=== PATIENT | female | born 1955 | race Caucasian/White ===

== ENCOUNTER 2017-08-16 02:18 | Inpatient (IN) | payer OTHER ==
[~2017-08-16] VITALS: Ht 172.7 cm; Wt 66.2 kg
[~2017-08-16 02:18] MED LIST: ALBUTEROL1.25 MG/1 INH/SOL; COZAAR50 M1 PO; PATADAY2.5 ML; PREVACID30 M1 PO; PROAIR HFA8.5 GM INH; RESTASIS1 EACH OPH; VALACYCLOVIR500 M1 PO
--- NOTE | 2017-08-16 09:40 | Admission Core Measures ---
Acute Coronary Syndrome (CM) ACS Core Measures Acute Coronary Syndrome Diagnosis No Congestive Heart Failure (NEW) CHF Core Measures Congestive Heart Failure Diagnosis No Cerebrovascular Accident (NEW) CVA Core Measures CVA/TIA Diagnosis No Venous Thromboembolism VTE Core [place] (View Protocol) VTE Risk Factors Surgery No Mechanical VTE Prophylaxis d/t N/A MechProphylax Ordered No VTE Pharm Prophylaxis d/t NA PharmProphylax ordered Problem List As ranked by this Provider includes Assessment & Plan 1. Unilateral primary osteoarthritis, left hip HOME MEDS Home Med List Albuterol Sulfate (Proair Hfa) 90 MCG HFA.AER.AD 2 PUF INH Q4-6 PRN PRN ASTHMA (Reported) Albuterol Sulfate 1.25 MG/3 ML VIAL.NEB 1 Vial INH/DAGOBERTO Q4 ASTHMA (Reported) Cyclosporine (Restasis) 0.05 % DROPERETTE 1 GTT OPH BID DRY EYE (Reported) Lansoprazole (Prevacid) 30 MG CAPSULE.DR 1 CAP PO DAILY REFLUX (Reported) Losartan Potassium (Cozaar) 50 MG TABLET 1 TAB PO DAILY HTN (Reported) Valacyclovir HCl (Valacyclovir) 500 MG TABLET 1 TAB PO BID HERPES (Reported)
--- NOTE | 2017-08-16 09:44 | Surg Short-stay <48hrs Dis Sum ---
Visit Information Visit Dates Admission Date: 08/16/17 Discharge Date: 08/17/17 Surgical Short Stay DC Summary Admission Diagnosis: Primary osteoarthritis, left hip Final Diagnosis: DUNIA s/p left total hip replacement Procedure(s): Left total hip replacement Summary/Significant Findings: Patient was admitted to the hospital for an elective left total hip replacement. The procedure was tolerated well and patient was transferred to a general surgical floor. Diet was advanced and tolerated and the patient voided spontaneously. The patient was evaluated and treated by physical therapy. At the time of hospital discharge, the vital signs were stable, neurovascular status was intact, and pain was controlled with the use of oral pain medications. Condition at Discharge: Stable Discharge Disposition: home health services Discharge instructions provided to patient/family: Yes Post discharge follow-up plan: F/u in [address] Dickinson
[2017-08-16] MEDS ORDERED: ASPIRIN325 M2 PO (09:45)
[2017-08-16] MEDS ORDERED: DILAUDID2 M1 PO (09:45)
[2017-08-16] MEDS ORDERED: MIRALAX17 G1 PO (09:45)
[2017-08-16] MEDS ORDERED: COLACE100 M1 PO (09:45)
--- NOTE | 2017-08-16 09:50 | Patient Discharge Instructions ---
Discharge Instructions General Discharge Information You were seen/treated for: Left hip osteoarthritis You had these procedures: Left hip arthroplasty on 08/16 Watch for these problems: Increasing pain despite the use of pain medication Increasing redness, warmth or swelling Drainage of any type from incision Inability to bear weight on operative leg Persistent nausea and vomiting Fever greater than 101.5 degrees Other wound care: Please keep wound clean and dry. No ointments or lotions of any type on or near incision. Your dressing will be changed by your nurse on the second day after your surgery. Daily dry dressing changes are recommended each day thereafter. Do not soak your wound- no tub baths/swimming. You may shower 48hr after surgery. Special Instructions: Aspirin: You are taking this medication to help prevent blood clot formation. Please take with food to protect your stomach lining. Please take as directed. Constipation: Pain medication can cause constipation. It is recommended that you take Colace and Miralax each day. Discontinue this medication if you develop loose stool or diarrhea. If you wish to continue this medication, it is available over the counter. If you are unable to move your bowels or unable to pass gas and are developing bloating, nausea, or vomiting as a result, please contact your doctor. Diet Continue normal diet: Yes Activity Activity Self Limited: Yes Activity Limited to: Weight bear as tolerated Other activity limits: Use rolling walker as needed Acute Coronary Syndrome Inclusion Criteria At DC or during hospital stay patient has or had the following: ACS DIAGNOSIS No Discharge Core Measures Meds if any: Prescribed or Continued at Discharge Meds if any: NOT Prescribed or Continued at Discharge Congestive Heart Failure Inclusion Criteria At DC or during hospital stay patient has or had the following: CHF DIAGNOSIS No Discharge Core Measures Meds if any: Prescribed or Continued at Discharge Meds if any: NOT Prescribed or Continued at Discharge Cerebrovascular accident Inclusion Criteria At DC or during hospital stay patient has or had the following: CVA/TIA Diagnosis No Discharge Core Measures Meds if any: Prescribed or Continued at Discharge Meds if any: NOT Prescribed or Continued at Discharge Venous thromboembolism Inclusion Criteria VTE Diagnosis No VTE Type NONE VTE Confirmed by (Test) NONE Discharge Core Measures - Per Current guidelines, there needs to be overlap - treatment for the first 5 days of Warfarin therapy. - If discharged on Warfarin prior to 5 days of - overlap therapy, the patient will need to be - assessed for post discharge needs including - *Post discharge parental anticoagulation - *Warfarin and/or parental anticoagulation education - *Follow up date to check INR post discharge At least 5 days overlap therapy as Inpatient No Meds if any: Prescribed or Continued at Discharge Note: Overlap Therapy is Warfarin and Anticoagulant Meds if any: NOT Prescribed or Continued at Discharge
--- NOTE | 2017-08-16 10:26 | RADIOLOGY REPORT ---
EXAMINATION: XR HIP, LEFT CLINICAL INFORMATION: In PACU. AP and lateral crosstable lateral left hip COMPARISON: MRI left hip 07/26/2016 TECHNIQUE: AP, lateral, and crosstable lateral views left hip FINDINGS: There is an expected postoperative appearance status post left total hip arthroplasty, with soft tissue gas and likely a small joint effusion. Hardware appears well seated and intact. 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 Alignment is near-anatomic. IMPRESSION: Expected postoperative appearance status post left total hip arthroplasty.
[2017-08-16 11:37] VITALS: BP 102/64
[2017-08-16 14:51] VITALS: BP 114/64
--- NOTE | 2017-08-16 16:00 | PN- Orthopedic ---
Subjective Subjective: POSTOP CHECK feeling well, some hip and low back pain. ambulated in halls, wesley meal. no cp/ sob/n/v. Objective Vital Signs and I&Os Vital Signs Date Time Temp Pulse Resp B/P B/P Pulse O2 O2 Flow FiO2 Mean Ox Delivery Rate 08/16 1451 97.6 66 18 114/64 96 Room Air 08/16 1428 Room Air 08/16 1137 97.9 60 18 102/64 98 Room Air Intake & Output 08/16 1600 08/16 0800 08/16 0000 08/15 1600 08/15 0800 08/15 0000 Intake Total 1080 Output Total 900 Balance 180 Intake, IV 600 Intake, Oral 480 Output, Urine 900 Patient 146 lb 145 lb Weight Weight Standing Scale Measurement Method Physical Exam: gen- nad card- s1s2 rrr pulm- ctab abd- soft nt ext- left hip dressing cdi, ice in place, alps on, calves soft nt, +sensation bl , +dorsi/plantar flexion, +pedal pulses Assessment/Plan Assessment/Plan A- POD-0 sp L SHANIQUA, stable, with appropriate postop pain P- -prn pain meds- change to oxy po per pt request -oob, pt, wbat -anticoag- asa bid - prn pain meds - home meds - dc planning Core Measures Venous Thromboembolism VTE Risk Factors Surgery No Mechanical VTE Prophylaxis d/t N/A MechProphylax Ordered No VTE Pharm Prophylaxis d/t NA PharmProphylax ordered
--- NOTE | 2017-08-16 16:37 | Operative Report ---
Operative/Inv Procedure Report Surgery Date: 08/16/17 Name of Procedure: Left total hip replacement Pre-Operative Diagnosis: Primary left hip DJD Post-Operative Diagnosis: Same Estimated Blood Loss: 250 Surgeon/[place] Operator: Alok BELLA,Herberth Garcia Anesthesia: block Operative/Procedure Note Note: Description of Procedure: The patient was taken to the operating room and positively identified. After induction of spinal anesthesia and administration of appropriate pre-operative antibiotics, the patient was positioned supine on the operating room table and all bony prominences were well padded. After performing a surgical timeout, the left lower extremity was prepped and draped in the usual sterile fashion. A direct anterior approach was made to the left hip. The incision was carried sharply through superficial soft tissues to the level of the fascia. Meticulous hemostasis was maintained with Bovie electocautery. The fascia over the tensor fascia wenceslao muscle was opened sharply and the interval between the TFL and the sartorius was entered bluntly taking care to stay lateral to the lateral femoral cutaneous nerve. Retractors were placed around the femoral neck and the pericapsular fat was identified. The ascending branches of the lateral femoral circumflex vessels were identified and carefully coagulated. The pericapsular fat and anterior capsule were then resected. A napkin ring osteotomy was performed and the femoral head was removed without difficulty. Attention was then turned to the acetabulum. After appropriate placement of retractors, the acetabulum was exposed. Soft tissue was cleaned from the acetabular margin and notch. Overhanging osteophytes were removed and the teardrop was exposed. The acetabulum was then sequentially reamed to accept a 52 mm [place] Tritanium hemispherical solid shell. This was impacted into place in the appropriate position and fitted with a 32 mm Trident X3 zero degree polyethylene insert. Attention was then turned to the femur. After performing the appropriate ligament releases, the proximal femur was exposed. It was then sequentially broached to accept a size 3 Jason Anato stem. This was trialed for leg length and stability. The trial component was removed and the final component was impacted into place. The trunnion was carefully cleaned and fit with a 32 mm, + 0 Biolox delta ceramic femoral head. The hip was reduced and put through a full range of motion and found to be stable. The articular space was then irrigated with sterile saline. The periarticular soft tissues were infilitrated with Marcaine. The fascial layer was closed with interrupted #1 vicryl suture and the skin was re-approximated with interrupted 2 -0 vicryl. The skin was closed with a running 3-0 V-Lock suture. Steri-strips and a sterile dressing were applied. The patient was awakened and taken to the recovery room in satisfactory condition.
[2017-08-16 22:23] VITALS: BP 120/70
[2017-08-17] VITALS: BP 1140/80; BP 140/80
[2017-08-17 04:01] VITALS: BP 110/60
[2017-08-17 06:40] VITALS: BP 110/60
[2017-08-17 07:58] VITALS: BP 118/68
[2017-08-17 08:04] LABS: ABSOLUTE BASOPHIL COUNT 0 /CUMM (0.0-0.2); ABSOLUTE EOSINOPHIL COUNT 0 /CUMM (0.0-0.7); ABSOLUTE GRANULOCYTE CT 8.2 /CUMM (1.4-6.5); ABSOLUTE LYMPH COUNT 1.3 /CUMM (1.2-3.4); BASOPHIL % 0.2 % (0.0-2.0); EOSINOPHIL % 0.1 % (0-5); GRANULOCYTE % 77.9 % (42.2-75.2); HEMATOCRIT 33.3 % (37-47); MEAN CORPUSCULAR HGB 32.7 PG (27.0-31.0); MEAN CORPUSCULAR HGB CONC 34.1 G/DL (33.0-37.0); MEAN CORPUSCULAR VOLUME 95.7 FL (81.0-99.0); MEAN PLATELET VOLUME 8.4 FL (7.4-10.4); PLATELET COUNT 230 /CUMM (130-400); RED BLOOD CELL CT 3.48 /CUMM (4.20-5.40); WHITE BLOOD CELL COUNT 10.6 /CUMM (4.8-10.8)
--- NOTE | 2017-08-17 08:47 | PN- Orthopedic ---
Subjective Subjective: Patient reports postop hip pain, exacerbated by walking yesterday and is somewhat controlled. She is tolerating a reg diet without any nausea or vomiting. Passing flatus. Voiding spontanously. She offers no other complaints. Denies nubmness or tingling. Objective Vital Signs and I&Os Vital Signs Date Time Temp Pulse Resp B/P B/P Pulse O2 O2 Flow FiO2 Mean Ox Delivery Rate 08/17 0758 99.0 67 18 118/68 96 Room Air 08/17 0401 97.9 60 20 110/60 96 Room Air 08/17 0000 98.0 61 20 140/80 96 Room Air 08/16 2223 97.9 63 18 120/70 96 Room Air 08/16 1451 97.6 66 18 114/64 96 Room Air 08/16 1428 Room Air 08/16 1137 97.9 60 18 102/64 98 Room Air Intake & Output 08/17 1600 08/17 0800 08/17 0000 08/16 1600 08/16 0800 08/16 0000 Intake Total 630 1080 Output Total 200 800 900 Balance 430 -800 180 Intake, IV 150 600 Intake, Oral 480 480 Number 0 Bowel Movements Output, Urine 200 800 900 Patient 146 lb Weight Weight Standing Scale Measurement Method Physical Exam: Gen - resting comfortably awake an alert in nad Card - S1S2 noted RRR Lungs - CTAB Ext- Left hip dressing c/d/i, + sensation B/L, + dorsi/plantar flexion, + pedal pulses, teds in place, no edema or calf tenderness Current Medications: Current Medications Sig/[place]uan [place] Start time Last Medication Dose Route Stop Time Status Admin Acetaminophen 650 MG Q4P PRN 08/16 1145 AC PO Acetaminophen 975 MG ONCE 08/16 0000 DC PO 08/16 2359 Albuterol Sulfate 2 PUF Q4P PRN 08/16 1400 AC INH Aspirin 325 MG BID 08/16 2200 AC 08/16 PO 2103 Cefazolin Sodium 2 GM IQ8 08/16 1600 DC 08/16 N/A 1 UNIT IV 08/17 0029 2338 Cefazolin Sodium 2,000 MG ONCE 08/16 0000 DC IV 08/16 2359 Cyclosporine 1 GTT BID 08/16 2199 AC 08/16 OPH 1701 Dextrose/Sodium 1,000 ML .[id number] 08/16 1145 DC 08/16 Chloride IV 1158 Docusate Sodium 100 MG BID 08/16 2199 AC 08/16 PO 210 Hydromorphone HCl 2 MG Q4P PRN 08/16 1145 DC PO Hydromorphone HCl 4 MG Q4P PRN 08/16 1145 DC PO Ketorolac 15 MG Q6P PRN 08/16 0930 AC 08/17 Tromethamine IV 08/19 09 0718 Losartan Potassium 50 MG DAILY 08/17 1000 AC PO Morphine Sulfate 2 MG Q2P PRN 08/16 1145 AC 08/16 IV 1420 Omeprazole 20 MG DAILY AC 08/17 0700 AC 08/17 PO 0424 Ondansetron HCl 4 MG Q6P PRN 08/16 1145 AC IV Oxycodone HCl 5 MG Q4 HRS NEEDED PRN 08/16 1615 AC PO Oxycodone HCl 10 MG Q4 HRS NEEDED PRN 08/16 1615 AC 08/17 PO 0425 Oxycodone HCl 10 MG ONCE 08/16 0000 DC PO 08/16 2359 Polyethylene Glycol 17 GM DAILY 08/17 1000 AC PO Promethazine HCl 12.5 MG Q6P PRN 08/16 1145 AC IV 08/23 0929 Tetrahydrozoline HCl 1 GTT 4 TIMES/DAY PRN 08/16 1630 AC OPH Valacyclovir HCl 500 MG BID 08/16 2199 AC 08/16 PO 210 Results Last 48 Hours of Labs: Laboratory Tests 08/17 07 Chemistry Sodium (137 - 145 mmol/L) 140 Potassium (3.5 - 5.1 mmol/L) 4.4 Chloride (98 - 107 mmol/L) 108 H Carbon Dioxide (22 - 30 mmol/L) 23 Anion Gap (5 - 16) 9 BUN (7 - 17 mg/dL) 11 Creatinine (0.5 - 1.0 mg/dL) 0.6 Estimated GFR (>60 ml/min) > 60 BUN/Creatinine Ratio (7 - 25 %) 18.3 Hematology CBC w Diff NO MAN DIFF REQ WBC (4.8 - 10.8 /CUMM) 10.6 RBC (4.20 - 5.40 /CUMM) 3.48 L Hgb (12.0 - 16.0 G/DL) 11.4 L Hct (37 - 47 %) 33.3 L MCV (81.0 - 99.0 FL) 95.7 MCH (27.0 - 31.0 PG) 32.7 H MCHC (33.0 - 37.0 G/DL) 34.1 RDW (11.5 - 14.5 %) 14.0 Plt Count (130 - 400 /CUMM) 230 MPV (7.4 - 10.4 FL) 8.4 Gran % (42.2 - 75.2 %) 77.9 H Lymphocytes % (20.5 - 51.1 %) 12.7 L Monocytes % (1.7 - 9.3 %) 9.1 Eosinophils % (0 - 5 %) 0.1 Basophils % (0.0 - 2.0 %) 0.2 Absolute Granulocytes (1.4 - 6.5 /CUMM) 8.2 H Absolute Lymphocytes (1.2 - 3.4 /CUMM) 1.3 Absolute Monocytes (0.10 - 0.60 /CUMM) 1.0 H Absolute Eosinophils (0.0 - 0.7 /CUMM) 0 Absolute Basophils (0.0 - 0.2 /CUMM) 0 Assessment/Plan Assessment/Plan 62 F POD 1 s/p L SHANIQUA, stable recovering well, awaiting PT clearance OOB PT, WBAT Reg diet IVF d/nelia Pain meds prn - switch to dilaudid DVT ppx - ASA bid, alps, teds Home meds on board Bowel regimen on board Anticipate d/c today pending PT clearance Core Measures Venous Thromboembolism VTE Risk Factors Surgery No Mechanical VTE Prophylaxis d/t N/A MechProphylax Ordered No VTE Pharm Prophylaxis d/t NA PharmProphylax ordered
== END 2017-08-17 10:05 | disposition home health service (06) | DRG 470 ==
LOC: SDA 02:18 → ENRESERV 09:38 → ENTRNSPT 10:41 → EDTRNSPTSTS 10:54 → EDTRNSPT 10:55 → 2NB 11:02 → CMPTRNSPT 11:12 → 2NB 11:46 → ENPENDDIS 08-17 08:47 → ENTRNSPT 08-17 09:47 → EDTRNSPTSTS 08-17 09:58 → EDTRNSPT 08-17 09:58 → 2NB 08-17 10:05 → CMPTRNSPT 08-17 10:13
PROVIDERS: Physician Assistant Surgical
PROC: 0SRB04A Replacement of Left Hip Joint with Ceramic on Polyethylene Synthetic Substitute, Uncemented, Open Approach (ICD-10-PCS; principal; 2017-08-16)
DX: M16.12 Unilateral primary osteoarthritis, left hip (principal); I10 Essential (primary) hypertension; J45.20 Mild intermittent asthma, uncomplicated; K21.9 Gastro-esophageal reflux disease without esophagitis; K44.9 Diaphragmatic hernia without obstruction or gangrene; Z85.828 Personal history of other malignant neoplasm of skin
CPT/HCPCS: 2NBP; 36415; 73502-LT; 82436; 97110-GO; 97116-GO; 97161-GP; 97530-GO; C9399; J0690; J0735; J2405; J2550; J3490; J7042